=== PATIENT | male | born 1975 | race Caucasian/White ===

== ENCOUNTER 2022-09-26 19:28 | Emergency (ER) | payer OTHER ==
[~2022-09-26] VITALS: Ht 182.9 cm; Wt 109.1 kg
[2022-09-26] MEDS ORDERED: morphine 4 MG/ML inj SYRINge IM ONE (21:40)
[2022-09-26] MEDS ORDERED: ondansetron 4mg rapidly disintigrating tab PO ONE (21:40)
[2022-09-26 22:12] LABS: ALANINE AMINOTRANSFERASE 48 U/L (12-78); ALBUMIN 3.8 G/DL (3.4-5.0); ALBUMIN/GLOBULIN RATIO 1.2 (1.1-1.5); ALKALINE PHOSPHATASE 78 IU/L (46-116); ANION GAP 12 (8-16); ASPARTATE AMINO TRANSFERASE 29 U/L (10-37); BILIRUBIN,TOTAL 0.3 MG/DL (0.1-1.0); BLOOD UREA NITROGEN 7 MG/DL (7-18); BUN/CREATININE RATIO 6.4 (10.0-20.0); CALCIUM 8.5 MG/DL (8.5-10.1); CHLORIDE 101 MMOL/L (99-107); GLUCOSE 114 MG/DL (70-104); LIPASE < 50 U/L (73-393); POTASSIUM 3.9 MMOL/L (3.5-5.1); SODIUM 139 MMOL/L (135-145); TOTAL CARBON DIOXIDE 26.1 MMOL/L (24-32); TOTAL PROTEIN 6.9 G/DL (6.4-8.2); eGFR 72 ML/MIN
[2022-09-26 22:18] LABS: BASOPHILS # (AUTO) 0.1 X10'3 (0-0.2); BASOPHILS % (AUTO) 0.6 % (0-1); EOSINOPHILS # (AUTO) 0.2 X10'3 (0-0.9); EOSINOPHILS % (AUTO) 2.1 % (0-6); HEMATOCRIT 39.7 % (42.0-52.0); HEMOGLOBIN 14.2 g/dl (14.0-17.9); LYMPHOCYTES # (AUTO) 1.7 X10'3 (1.1-4.8); LYMPHOCYTES % (AUTO) 21.3 % (21-51); MEAN CORPUSCULAR HEMOGLOBIN 32.1 PG (27.0-31.0); MEAN CORPUSCULAR HGB CONC 35.8 g/dL (33.0-36.5); MEAN CORPUSCULAR VOLUME 89.7 FL (78-98); MEAN PLATELET VOLUME 8.9 FL (7.4-10.4); MONOCYTES # (AUTO) 0.6 X10'3 (0-0.9); MONOCYTES % (AUTO) 7.5 % (2-12); NEUTROPHILS # (AUTO) 5.4 X10'3 (1.8-7.7); NEUTROPHILS % (AUTO) 68.5 % (42-75); PLATELET COUNT 222 X10'3 (140-440); RED BLOOD COUNT 4.42 X10'6 (4.70-6.10); RED CELL DISTRIBUTION WIDTH 12.5 % (11.5-14.5)
[2022-09-26] MEDS ORDERED: iohexol 300mg/ml 100ml inj. ONE (22:42)
[2022-09-26] MEDS ORDERED: ondansetron/PF 4mg/2ml inj IV ONE (23:05)
[2022-09-26] MEDS ORDERED: HYDROmorphone 1 mg/ml syringe IV ONE (23:05)
[2022-09-26] MEDS ORDERED: morphine 4 MG/ML inj SYRINge IV ONE (23:05)
[2022-09-26 23:39] VITALS: BP 143/96
[2022-09-27] MEDS ORDERED: cyclobenzaprine 10mg tablet PO ONE
[2022-09-27] MEDS ORDERED: ketorolac trometh. 30mg/ml inj. IV ONE
[2022-09-27] MEDS ORDERED: ORPH100T4 PO (00:06)
--- NOTE | 2022-09-27 01:22 | NUR ---
IV DC'D PT BEING DISCHARGED DRESSING APPLIED
== END 2022-09-27 01:23 | disposition home or self-care (01) ==
LOC: ER 19:29
DX: S39.011A Strain of muscle, fascia and tendon of abdomen, initial encounter (principal); X58.XXXA Exposure to other specified factors, initial encounter; Y93.89 Activity, other specified; Y92.89 Other specified places as the place of occurrence of the external cause; Y99.8 Other external cause status
CPT/HCPCS: 36415; 71045; 71260; 74177; 80053; 83690; 85025; 96372; 96374; 96375; 99285; J1885; J2270; J2405; J3490; Q9967